=== PATIENT | male | born 1980 | race Two or more races ===

== ENCOUNTER 2020-03-26 10:32 | Emergency (ER) | payer OTHER ==
[~2020-03-26] VITALS: Ht 180.3 cm; Wt 72.0 kg
[2020-03-26] MEDS ORDERED: AMOXICILLIN TRIHYDRATE 250 MG CAPSULE PO ONE (11:15)
[2020-03-26] MEDS ORDERED: KETOROLAC TROMETHAMINE 30 MG/ML VIAL IM ONE (11:15)
[2020-03-26 11:31] VITALS: BP 144/98
== END 2020-03-26 11:33 | disposition home or self-care (01) ==
LOC: EMS 10:34
DX: K02.9 Dental caries, unspecified (principal)
CPT/HCPCS: 96372; 99283; J1885